=== PATIENT | female | born 1960 | race Caucasian/White ===

== ENCOUNTER → 2023-04-08 | Outpatient (CLI) | payer OTHER, SELFPAY ==
[2023-04-08 12:26] LABS: Absolute Lymphocyte Count 1.55 X10^3/uL (0.83-4.51); Absolute Neutrophil Count 6.6 X10^3/uL (2.0-7.7); Basophil# 0.03 X10^3/uL; Basophil% 0.3 % (0-1); Eosinophil# 0.03 X10^3/uL; Eosinophils% 0.3 % (0-5); Hematocrit 43.6 % (37-47); Hemoglobin 14.2 g/dL (12.0-15.0); Lymphocyte # 1.55 X10^3/ul (0.83-4.51); Lymphocyte % 17.9 % (19-41); Mean Corp Hgb Conc 32.6 g/dL (32-36); Mean Platelet Vol. 11.7 fl (6.2-12.0); Monocyte# 0.42 X10^3/uL; Monocyte% 4.9 % (0-10); NRBC Flagged by Analyzer 0 % (0-5); Neutrophil # 6.57 X10^3/uL (2.7-7.7); Neutrophil % 76.1 % (47-70); Platelet Count 232 K/mm3 (150-450); RBC Distribution Width CV 13.2 % (11.6-14.6); RBC Distribution Width SD 41.1 fl (35.1-43.9); Red Blood Count 5.07 M/mm3 (4.2-5.4); White Blood Count 8.6 K/mm3 (4.4-11.0)
[2023-04-08 13:31] LABS: Hemoglobin A1c 5.6 % (3.8-5.6)
[2023-04-08 13:33] LABS: ALB/GLOB Ratio 0.9 RATIO (0.9-2.4); AST(SGOT) 13 U/L (15-37); Alanine Aminotransfer ALT/SGPT 11 U/L (13-56); Albumin, Serum 3.4 g/dL (3.2-5.0); Alkaline Phosphatase 82 U/L (45-117); Anion Gap 6 (5-15); BUN 18 mg/dL (7-18); BUN/Creat Ratio 19.8 RATIO (10-20); Calcium,Total 9.2 mg/dL (8.5-10.1); Chloride 107 mmol/L (98-107); Cholesterol 176 mg/dL (200); Creatinine, Serum 0.91 mg/dL (0.55-1.02); EST Glomerular Filtration Rate 66 mL/min (>60); Est Glom Filt Rate - Afr Amer 80 mL/min (>60); Globulin 3.9 g/dL (2.2-4.2); Glucose 121 mg/dL (74-106); High Density Lipoprotein 51 mg/dL; Potassium 3.8 mmol/L (3.5-5.1); Protein, Total 7.3 g/dL (6.4-8.2); Sodium Level 138 mmol/L (136-145); Thyroid Stim Hormone (TSH) 1.68 uIU/mL (0.358-3.74); Triglycerides 97 mg/dL; Very Low Density Lipoprotein 19 mg/dL (5-40)
== END | disposition home or self-care (01) ==
LOC: BIMLAB 10:16
PROVIDERS: PCP Internal Medicine; Referring Provider Internal Medicine; Visit Provider Internal Medicine
DX: I10 Essential (primary) hypertension (principal); R73.03 Prediabetes; E03.9 Hypothyroidism, unspecified
CPT/HCPCS: 36415; 80053; 80061; 83036; 84443; 85025

== ENCOUNTER 2023-05-25 05:59 | Day surgery (SDC) | payer OTHER, SELFPAY ==
[2023-05-25 06:25] VITALS: BP 147/87; PULSE 98; RESP 16; TEMP 36.9; O2SAT 99; BMI 38.5
[2023-05-25] MEDS: Lactated Ringers 1,000 ML 15 ML IV (06:27)
--- NOTE | 2023-05-25 07:16 | HP.PCM_ITS ---
HPI - General General Date of Service: 05/25/23 HPI Narrative JENNIFER HOFFMAN, is a 62 F who presents for surveillance colonoscopy due to history of colon polyp. Patient denies any changes since her office visit. Denies any chronic abdominal pain/nausea/vomiting. office visit 04/15/23 [facility] HPI: 62-year-old female presents for colonoscopy due to history of colon polyps. Patient had colonoscopy 5 years ago in [place] patient had a polyp at that time. Patient also had an EGD and has been on omeprazole 20 to 40 mg p.o. daily she still occasionally gets some indigestion/acid in her throat maybe about 6 times a year. Patient denies any family history of colon cancer. Patient did not have Marti's only mild gastritis on her EGD. Patient has bowel movements daily denies any blood. [facility] Medical History (Updated 05/19/23 @ 10:22 by Leonor Carreon) Adrenal mass Anxiety Arthritis Cancer Cardiology follow-up encounter Diabetes Fatty liver Former smoker GERD (gastroesophageal reflux disease) History of echocardiogram History of hiatal hernia History of pain when walking Hypertension IBS (irritable bowel syndrome) Injury of head and neck Lobular carcinoma in situ (LCIS) of right breast Molar Post-menopausal Prediabetes Tachycardia Thyroid disease Wears glasses Home Medications alprazolam 0.25 mg tablet 0.25 mg PO DAILY PRN anxiety 04/08/23 [History Last Taken 05/25/23] enalapril 5 mg-hydrochlorothiazide 12.5 mg tablet 1 tab PO DAILY 04/08/23 [History Last Taken Unknown] levothyroxine 75 mcg tablet 75 mcg PO DAILY 04/08/23 [History Last Taken 05/25/23] metoprolol succinate 25 mg tablet,extended release 24 hr 25 mg PO QHS 04/08/23 [History Last Taken 05/25/23] omeprazole 40 mg capsule,delayed release 40 mg PO DAILY 04/08/23 [History Last Taken 05/25/23] buspirone 5 mg tablet 5 mg PO BID #180 tabs 05/19/23 [Rx Last Taken 05/25/23] Allergy/AdvReac Type Severity Reaction Status Date / Time horse dander Allergy Mild watery eyes Verified 05/25/23 06:17 mold Allergy Mild watery eyes Verified 05/25/23 06:17 ibuprofen [From Motrin] Allergy edema Verified 05/25/23 06:17 Penicillins AdvReac edema Verified 05/25/23 06:17 Family History Grandmother Breast cancer Heart disease Father Anxiety Asthma Arthritis Hypertension Hyperlipemia Thyroid disorder COPD (chronic obstructive pulmonary disease) Cancer skin Mother Heart valve disease Diabetes Myocardial infarction Cancer skin Grandfather Alcoholism Cancer lung Sister Anemia Anxiety Depression Hyperlipemia Thyroid disorder Marti esophagus Grandmother Arthritis Diabetes Surgical History (Updated 05/19/23 @ 10:22 by Leonor Carreon) H/O breast biopsy H/O dilation and curettage H/O lumpectomy H/O sinus surgery History of cholecystectomy History of esophagogastroduodenoscopy (EGD) Hx of colonoscopy Social History adopted: No household members: spouse current occupational status: retired 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 pets and animals: Yes pets and animals: dog(s) history of recent travel: Yes (fl) Smoking Status: Former smoker quit date: 03/06/87 pack-years: 10 Tobacco: How many years used: 10 Electronic Cigarette Use: not used alcohol intake: never substance use type: does not use well-balanced diet: daily or most days caffeine: Yes (1) Type: coffee what type of physical activity do you participate in: none seatbelt use: always do you feel safe at home: Yes Past Medical/Surgical History Planned Operation Planned Operative Procedure/s: CSCOPE Previous Hospitalizations/Surgeries HX Hospitalizations: No Any Problems With Anesthesia: No You/Your Family Experience Fever (Hyperthermia) With Anes: No Cholinesterase deficiency: No Cardiovascular Hx Hypertension: Yes (CONTROLLED WITH MED) Respiratory Hx Sleep Apnea: No CPAP: No BIPAP: No Hx Respiratory Tract Infection/Cold (presently): No Do You Snore Loudly (louder than talking or can be heard): Yes Do You Often Feel Tired/ Fatigued/ Sleepy Dring Daytime?: No Has Anyone Observed You Stop Breathing During Sleep?: No Result (for STOP score): Positive Smoking Status: Former smoker Neurological Does patient have nerve stimulator: No Reproduction : No Miscellaneous Recent Exposure to Contagious Disease: No Allergies horse dander Allergy (Mild, Verified 05/25/23 06:17) watery eyes mold Allergy (Mild, Verified 05/25/23 06:17) watery eyes ibuprofen [From Motrin] Allergy (Verified 05/25/23 06:17) edema Penicillins Adverse Reaction (Verified 05/25/23 06:17) edema Discharge Is Pt Admitted From a Residential, or a Longterm: No After D/C, Where Do you Plan to Go: Return Home Vital Signs Vital Signs Vital Signs: 05/25/23 06:25 05/25/23 06:25 Temperature 98.4 F Temperature Source Temporal Pulse Rate 98 Respiratory Rate 16 Respiratory Pattern Normal Blood Pressure 147/87 H Blood Pressure Mean 107 Blood Pressure Source Monitor Blood Pressure Position Semi-Fowlers Blood Pressure Location Left Arm Pulse Ox 99 Oxygen Delivery Method Room Air Weight Weight: 246 lb 4.101 oz Body Mass Index (BMI) 38.5 Physical Exam Const alert, oriented x3 and no apparent distress HEENT normocephalic and head/scalp atraumatic Resp normal respiratory effort Cardio regular rate GI soft to palpation and non-tender; Negative for non-distended Palpation: Negative for guarding Extremity no clubbing, cyanosis or edema Skin no rashes or lesions noted Neuro CN's II-XII intact bilaterally Psych mental status grossly normal Assessment & Plan Assessment/Plan (1) Hx of colonic polyp: Surgery Risks - Colonoscopy I discussed with the patient the risks of the procedure: Yes Risks Include but are not Limited To: Risks include but are not limited to: Bleeding, perforation requiring further surgery, inability to complete colonoscopy requiring barium enema.
--- NOTE | 2023-05-25 07:30 | COLBX_PTH ---
PATHOLOGY RESULTS PATIENT: JENNIFER HOFFMAN LOC: EN U#:[id number] AGE/SX: 62/F ROOM: RE05/25/[address]: Dr. Viv Barnhart MD : 1960 BED: DIS: 05/25/2023 SPEC #: [id number] RECD: 05/25/23 11:56 STATUS: AMBROCIO GARCIA #: [id number] ETHAN: 05/25/23 07:[address]: Viv Barnhart DEPT: SURGICAL PATHOLOGY RECD BY: Maricarmen Guillory ENTERED: 05/25/23 11:56 SP TYPE: COLON BX OTHR DR: Dr. Vita Roberto MD Tissues: Sigmoid colon biopsy Procedures: Surgery Specimen Level IV HEADER OPERATION: Colonoscopy with biopsies PRE-OP DIAGNOSIS: History of colonic polyp TISSUE SUBMITTED: Sigmoid polyp biopsy MICROSCOPIC DIAGNOSIS Sigmoid colon polyp, biopsy: Fragments of colonic mucosa with focal hyperplastic change. AM:mare 05/26/2023 MICROSCOPIC DESCRIPTION Slides are reviewed. GROSS DESCRIPTION Received in fixative is one container labeled with the patient's name and designated sigmoid polyp biopsy. The specimen consists of multiple irregular fragments of light kasper soft tissue that in aggregate measure 1.0 x 0.3 x 0.1 cm. The specimen is totally submitted in one cassette. / SJ:mare 05/25/2023 TC:5 CPT: 43810
[2023-05-25 07:55] VITALS: BP 105/70; BP 147/87; PULSE 78; RESP 16; TEMP 37.7; O2SAT 95
[2023-05-25 08:00] VITALS: BP 111/70; BP 147/87; PULSE 71; RESP 16; O2SAT 97
--- NOTE | 2023-05-25 08:01 | OP.CCLET_ITS ---
05/25/2023 Vita Roberto Md Re : Colonoscopy procedure for Michela King Dear Pardeep This procedure was performed on Thursday, May 25, 2023. My impressions and recommendations are as follows: Impressions : - Diverticulosis in the sigmoid colon. - Two less than 5 mm polyps in the sigmoid colon, removed with a cold biopsy forceps. Resected and retrieved. - The examination was otherwise normal on direct and retroflexion views. Recommendations : - Discharge patient to home. - High fiber diet. - Continue present medications. - Await pathology results. - Repeat colonoscopy in 5 years for surveillance based on pathology results. My findings are described in the full procedure note, which is enclosed. If I can be of further assistance, please feel free to contact me at Doctor phone number(s): , Work: . Sincerely, MD Viv Monique MD 05/25/2023 8:00:59 AM This report has been signed electronically.
--- NOTE | 2023-05-25 08:01 | OP.COLON_ITS ---
Patient Name: Michela King Procedure Date: 05/25/2023 7:17 AM Date of : 1960 Age: 62 Procedure: Colonoscopy Indications: High risk colon cancer surveillance: Personal history of colonic polyps Providers: Viv Barnhart MD Medicines: Monitored Anesthesia Care Patient Profile: This is a 62 year old female. Last Colonoscopy: 5 years ago. Complications: No immediate complications. Procedure: Pre-Anesthesia Assessment: - Prior to the procedure, a History and Physical was performed, and patient medications and allergies were reviewed. The patient's tolerance of previous anesthesia was also reviewed. The risks and benefits of the procedure and the sedation options and risks were discussed with the patient. All questions were answered, and informed consent was obtained. Prior Anticoagulants: The patient has taken no anticoagulant or antiplatelet agents. ASA Grade Assessment: Per anesthesia. After reviewing the risks and benefits, the patient was deemed in satisfactory condition to undergo the procedure. After I obtained informed consent, the scope was passed under direct vision. Throughout the procedure, the patient's blood pressure, pulse, and oxygen saturations were monitored continuously. The Colonoscope was introduced through the anus and advanced to the cecum, identified by the appendiceal orifice, ileocecal valve and palpation. The colonoscopy was performed without difficulty. The patient tolerated the procedure well. The quality of the bowel preparation was good. Scope In: 7:32:00 AM Scope Withdrawal Time 0 hours 11 minutes 16 seconds Scope Out: 7:52:55 AM Total Procedure Duration Time 0 hours 20 minutes 55 seconds Findings: The perianal and digital rectal examinations were normal. Scattered small-mouthed diverticula were found in the sigmoid colon. Two sessile polyps were found in the sigmoid colon. The polyps were less than 5 mm in size. These polyps were removed with a cold biopsy forceps. Resection and retrieval were complete. The exam was otherwise without abnormality on direct and retroflexion views. Impression: - Diverticulosis in the sigmoid colon. - Two less than 5 mm polyps in the sigmoid colon, removed with a cold biopsy forceps. Resected and retrieved. - The examination was otherwise normal on direct and retroflexion views. Recommendation: - Discharge patient to home. - High fiber diet. - Continue present medications. - Await pathology results. - Repeat colonoscopy in 5 years for surveillance based on pathology results. Procedure Code(s): --- Professional --- 55326, PT, Colonoscopy, flexible; with biopsy, single or multiple Diagnosis Code(s): --- Professional --- Z86.010, Personal history of colonic polyps D12.5, Benign neoplasm of sigmoid colon K57.30, Diverticulosis of large intestine without perforation or abscess without bleeding CPT copyright 2021 [employer]. All rights reserved. The codes documented in this report are preliminary and upon associate program manager review may be revised to meet current compliance requirements. MD Viv Monique MD 05/25/2023 8:00:59 AM This report has been signed electronically. Number of Addenda: 0 Note Initiated On: 05/25/2023 7:17 AM
[2023-05-25 08:05] VITALS: BP 125/67; BP 147/87; PULSE 70; RESP 16; O2SAT 97
[2023-05-25 08:11] VITALS: BP 127/72; BP 147/87; PULSE 72; RESP 16; TEMP 37.1; O2SAT 96
[2023-05-25 08:30] VITALS: BP 147/87
== END 2023-05-25 08:31 | disposition home or self-care (01) ==
LOC: EN 06:00 → AC 06:01
PROVIDERS: PCP Internal Medicine; Referring Provider Surgery; Visit Provider Surgery
PROC: 0DJD8ZZ Inspection of Lower Intestinal Tract, Via Natural or Artificial Opening Endoscopic (ICD-10-PCS; CPT 45378; principal; 2023-05-25 07:25)
DX: Z12.11 Encounter for screening for malignant neoplasm of colon (principal); E11.9 Type 2 diabetes mellitus without complications; K57.30 Diverticulosis of large intestine without perforation or abscess without bleeding; Z87.891 Personal history of nicotine dependence; K63.5 Polyp of colon; I10 Essential (primary) hypertension; Z86.010 Personal history of colon polyps; K21.9 Gastro-esophageal reflux disease without esophagitis; Z85.3 Personal history of malignant neoplasm of breast; F41.9 Anxiety disorder, unspecified; Z79.899 Other long term (current) drug therapy; Z90.49 Acquired absence of other specified parts of digestive tract
CPT/HCPCS: 45380; 88305; J7120; J2405

== ENCOUNTER → 2024-04-27 | Outpatient (CLI) | payer OTHER, SELFPAY ==
[2024-04-27 13:26] LABS: Cholesterol 177 mg/dL (200); High Density Lipoprotein 55 mg/dL; Triglycerides 111 mg/dL; Very Low Density Lipoprotein 22 mg/dL (5-40)
[2024-04-27 18:52] LABS: Hemoglobin A1c 5.5 % (3.8-5.6)
== END | disposition home or self-care (01) ==
LOC: BIMLAB 10:40
PROVIDERS: PCP Internal Medicine; Referring Provider Internal Medicine; Visit Provider Internal Medicine
DX: E03.9 Hypothyroidism, unspecified (principal); I10 Essential (primary) hypertension; R73.03 Prediabetes
CPT/HCPCS: 36415; 80061; 83036; 84443